=== PATIENT | female | born 1995 | race African-American/Black ===

== ENCOUNTER 2018-11-15 05:24 | Inpatient (IN) ==
[2018-11-15] MEDS ORDERED: BUTORPHANOL 1 MG/ML VIAL IV PRN (05:34)
[2018-11-15] MEDS ORDERED: ONDANSETRON 4 MG/2 ML VIAL IV PRN ×2 (05:34→13:15)
[2018-11-15 05:55] LABS: Basophils % 0.3 % (0.0-0.8); Eosinophils # 0.3 10*3/uL (0.0-0.87); Hematocrit 29.7 VOL% (35.7-47.0); Immature Granulocytes % 0.8 %; Immature Granulocytes Absolute 0.08 #; Lymphocytes # 2.7 10*3/uL (1.4-4.0); Lymphocytes % 26.1 % (21.3-54.2); Mean Corpuscular HGB Conc 30.3 GM/DL (32-36); Mean Corpuscular Volume 86.6 FL (87-102); Mean Platelet Volume 8.7 FL (9.6-12.0); Monocytes % 9.1 % (1.7-12.7); Neutrophils % 60.7 % (38.7-73.9); Platelet Count 260 T/CUMM (130-400); Red Blood Count 3.43 MC/CUMM (3.8-5.5); Red Cell Distribution Width 13.9 % (9.3-17.3); White Blood Count 10.4 T/CUMM (4-12)
[2018-11-15] MEDS ORDERED: OXYTOCIN/LR 20 UNIT/1,000 ML BAG IV SCH (06:00)
[2018-11-15] MEDS ORDERED: LACTATED RINGERS 1,000 ML IV SCH ×2 (06:00→10:00)
[2018-11-15 06:19] LABS: Alanine Aminotransferase 11 U/L (13-56); Albumin 2.7 G/DL (3.4-5.0); Alkaline Phosphatase 165 U/L (45-117); Aspartate Amino Transferase 15 U/L (0-37); Bilirubin,Total < 0.39 MG/DL (0.2-1.0); Blood Urea Nitrogen 5 MG/DL (7-18); Calcium 8.7 MG/DL (8.5-10.1); Glucose 78 MG/DL (74-106); Osmolality,Calculated 274.4 MOS/KG (273-304); Total Protein 6.5 G/DL (6.4-8.3)
[2018-11-15] MEDS ORDERED: diphenhydrAMINE 50 MG/1 ML VIAL IV PRN ×2 (09:32)
[2018-11-15] MEDS ORDERED: FAMOTIDINE 20 MG/2 ML VIAL IV ONE (09:32)
[2018-11-15] MEDS ORDERED: hydrOXYzine HCL 25 MG/1 ML VIAL IM PRN (09:32)
[2018-11-15] MEDS ORDERED: ePHEDrine 50 MG/ML AMP IV PRN (09:32)
[2018-11-15] MEDS ORDERED: NALOXONE 0.4 MG/ML VIAL IV PRN (09:32)
[2018-11-15] MEDS ORDERED: CITRIC ACID/SODIUM CITRATE 30 ML UDCUP PO ONE (09:32)
[2018-11-15] MEDS ORDERED: PROMETHAZINE 25 MG/1 ML VIAL IM ONE (09:32)
[2018-11-15] MEDS ORDERED: LACTATED RINGERS 1,000 ML IV ONE (09:32)
[2018-11-15] MEDS ORDERED: ONDANSETRON 4 MG/2 ML VIAL IV ONE (09:32)
[2018-11-15] MEDS ORDERED: fentaNYL 2 MCG/ROPIV 0.2% EPID 100 ML EPIDURAL SCH (10:00)
[2018-11-15 11:52] LABS: Apearance,Urine CLEAR (Clear); Bacteria,Urine Occasional /HPF (Few); Bilirubin,Urine Negative (Negative); Blood, Urine Negative (Negative); Glucose,Urine (UA) Negative (Negative); Ketones,Urine Negative (Negative); Nitrite,Urine Negative (Negative); Protein,Urine Negative; RBC,Urine 1 /HPF (0-4); Urine Color Straw (Yellow); Urine Specific Gravity 1.004 (1.001-1.035); Urine Urobilinogen < 2.0 EU/DL (0.2-1.0); WBC,Urine 1 /HPF (0-6)
[2018-11-15] MEDS ORDERED: miSOPROStol 200 MCG TABLET ONE (12:55)
[2018-11-15] MEDS ORDERED: OXYTOCIN/LR 0 UNIT/0 ML BAG IV ONE (12:55)
[2018-11-15] MEDS ORDERED: OXYTOCIN 10 UNIT/ML VIAL ONE (12:56)
[2018-11-15] MEDS ORDERED: CARBOPROST TROMETHAMINE 250 MCG/ML AMP IM ONE (12:56)
[2018-11-15] MEDS ORDERED: METHYLERGONOVINE 0.2 MG/1 ML AMP ONE (12:56)
[2018-11-15] MEDS ORDERED: ACETAMINOPHEN 325 MG TABLET PO PRN (13:15)
[2018-11-15] MEDS ORDERED: OXYTOCIN/LR 20 UNIT/1,000 ML BAG IV ONE (13:15)
[2018-11-15] MEDS ORDERED: oxyCODONE/ACETAMINOPHEN 5-325 MG TABLET PO PRN (13:15)
[2018-11-15] MEDS ORDERED: BISACODYL 10 MG SUPP RECTAL PRN (13:15)
[2018-11-15] MEDS ORDERED: WITCH HAZEL PADS 100/JAR TOP PRN (13:15)
[2018-11-15] MEDS ORDERED: HYDROCORTISONE 2.5% RECTAL CREAM 30 GM TUBE TOP PRN (13:15)
[2018-11-15] MEDS ORDERED: BENZOCAINE 20%/MENTHOL 0.5% SPRAY 56 GM CAN TOP PRN (13:15)
[2018-11-15] MEDS ORDERED: LANOLIN 50% CREAM 0.3 OZ TUBE TOP PRN (13:15)
[2018-11-15] MEDS ORDERED: MEASLES/MUMPS/RUBELLA VACCINE 0.5 ML VIAL SUBCUT ONE (14:00)
[2018-11-15] MEDS ORDERED: RHO(D) IMMUNE GLOBULIN 300 MCG SYRINGE IM ONE (14:00)
[2018-11-15] MEDS ORDERED: DIPH/TET/ACEL PERT BOOSTER VACCINE 0.5 ML VIAL IM ONE (14:00)
[2018-11-15 19:17] LABS: HIV Antigen/Antibody Result Nonreactive (Nonreactive); Hepatitis B Surface Ag Quant < 0.10 Index; Hepatitis B Surface Ag Result Negative (Negative); Rubella Antibody IgG 32.7 IU/ML
[2018-11-15] MEDS: oxyCODONE/ACETAMINOPHEN 5-325 MG TABLET PO PRN (19:33)
[2018-11-15] MEDS: DOCUSATE SODIUM 100 MG CAPSULE PO SCH (21:05)
[2018-11-15] MEDS ORDERED: MAGNESIUM HYDROXIDE SUSP 30 ML UDCUP PO PRN (21:10)
[2018-11-15] MEDS: IBUPROFEN 800 MG TABLET PO PRN (21:13)
[2018-11-16 05:34] LABS: Basophils % 0.3 % (0.0-0.8); Eosinophils # 0.4 10*3/uL (0.0-0.87); Hematocrit 26.8 VOL% (35.7-47.0); Hemoglobin 8.3 GM/DL (12.0-16.0); Immature Granulocytes % 0.4 %; Immature Granulocytes Absolute 0.05 #; Lymphocytes # 3.3 10*3/uL (1.4-4.0); Lymphocytes % 26.8 % (21.3-54.2); Mean Corpuscular Volume 84.5 FL (87-102); Mean Platelet Volume 9.2 FL (9.6-12.0); Monocytes % 8.8 % (1.7-12.7); Neutrophils % 60.7 % (38.7-73.9); Platelet Count 236 T/CUMM (130-400); Red Blood Count 3.17 MC/CUMM (3.8-5.5); Red Cell Distribution Width 13.7 % (9.3-17.3); White Blood Count 12.5 T/CUMM (4-12)
[2018-11-16] MEDS: IBUPROFEN 800 MG TABLET PO PRN ×2 (09:29→19:54)
[2018-11-16] MEDS: FERROUS SULFATE 325 MG TABLET PO SCH ×2 (09:29→19:54)
[2018-11-16] MEDS: DOCUSATE SODIUM 100 MG CAPSULE PO SCH ×2 (09:29→19:54)
[2018-11-16] MEDS: oxyCODONE/ACETAMINOPHEN 5-325 MG TABLET PO PRN (09:29)
[2018-11-17 07:20] VITALS: BP 106/64
[2018-11-17] MEDS: IBUPROFEN 800 MG TABLET PO PRN (08:40)
[2018-11-17] MEDS: FERROUS SULFATE 325 MG TABLET PO SCH (08:51)
[2018-11-17] MEDS: DOCUSATE SODIUM 100 MG CAPSULE PO SCH (08:51)
== END 2018-11-17 13:05 | disposition home or self-care (01) | DRG 560 ==
LOC: N.LDOUT 05:24 → N.LD 05:27 → N.OB 15:44
PROVIDERS: ADMIT Obstetrics & Gynecology; ATTEND Obstetrics & Gynecology